=== PATIENT | female | born 1990 | race Caucasian/White ===

== ENCOUNTER 2019-06-09 14:50 | Emergency (ER) | payer OTHER ==
[~2019-06-09] VITALS: Ht 157.5 cm; Wt 42.6 kg
[2019-06-09 14:54] VITALS: BP 116/62; Ht 157.5 cm; Wt 42.6 kg
== END 2019-06-09 17:48 | disposition home or self-care (01) ==
LOC: ED 14:50
DX: L03.012 Cellulitis of left finger (principal)